=== PATIENT | male | born 1990 | race Caucasian/White ===

== ENCOUNTER 2018-01-26 17:52 | Emergency (ER) | payer OTHER ==
[2018-01-26] MEDS: morphine 4 MG/ML VIAL IV (22:11)
[2018-01-26] MEDS: ONDANSETRON 4 MG INJ IV (22:11)
[2018-01-26] MEDS: SOD CHLORIDE 0.9% 1,000 ML IV (22:12)
[2018-01-26] MEDS: CLINDAMYCIN 600 MG/D5W (PMX) 50 ML IVPB (22:12)
[2018-01-26 22:17] LABS: ADD MAN DIFF? NO
[2018-01-26 22:20] LABS: WHITE BLOOD COUNT 8.2 10^3/ul (4.8-10.8)
[2018-01-26 22:20] LABS: BASOPHILS % 0.4 % (0.0-2.0); EOSINOPHILS # 0.1 10^3/ul (0.0-0.5); EOSINOPHILS % 0.7 % (0.0-7.0); HEMATOCRIT 35.8 % (42.0-52.0); HEMOGLOBIN 12.2 g/dl (14.0-18.0); LYMPHOCYTES # 2.2 10^3/ul (0.8-2.9); LYMPHOCYTES % 26.9 % (15.0-51.0); MEAN CORPUSCULAR HEMOGLOBIN 28.4 pg (29.0-33.0); MEAN CORPUSCULAR HGB CONC 34.1 g/dl (32.0-37.0); MEAN CORPUSCULAR VOLUME 83.3 fl (82.0-101.0); MEAN PLATELET VOLUME 9.4 fl (7.4-10.4); MONOCYTE # 0.6 10^3/ul (0.3-0.9); MONOCYTES % 6.8 % (0.0-11.0); NEUTROPHIL # 5.3 10^3/ul (1.6-7.5); NEUTROPHILS % 64.8 % (39.0-77.0); PLATELET COUNT 176 10^3/UL (140-415); RED CELL DISTRIBUTION WIDTH 11.8 % (11.5-14.5)
[2018-01-26 22:36] LABS: ALANINE AMINOTRANSFERASE 16 IU/L (13-69); ALBUMIN 4.5 g/dl (3.3-4.9); ALBUMIN/GLOBULIN RATIO 1.21; ALKALINE PHOSPHATASE 95 IU/L (42-121); ANION GAP 13 (8-16); ASPARTATE AMINO TRANSFERASE 18 IU/L (15-46); BILIRUBIN,INDIRECT 1.3 mg/dl (0-1.1); BILIRUBIN,TOTAL 1.3 mg/dl (0.2-1.3); BLOOD UREA NITROGEN 13 mg/dl (7-20); CALCIUM 9.7 mg/dl (8.4-10.2); CARBON DIOXIDE 30 mmol/L (21-31); CHLORIDE 101 mmol/L (97-110); CREATININE 0.89 mg/dl (0.61-1.24); GLUCOSE 87 mg/dl (70-220); POTASSIUM 3.6 mmol/L (3.5-5.1); SODIUM 140 mmol/L (135-144); TOTAL PROTEIN 8.2 g/dl (6.1-8.1)
[2018-01-26 22:52] LABS: INR 1.04; PROTIME 13.7 Sec (11.9-14.9); PT RATIO 1.1
[2018-01-26] MEDS: IOHEXOL 300MG/ML 150 ML BTL (23:33)
[2018-01-26] MEDS: SOD CHLORIDE 0.9% 100 ML (23:33)
[2018-01-27] MEDS: KETOROLAC 30 MG INJ IV (00:45)
== END 2018-01-27 01:13 | disposition home or self-care (01) ==
LOC: FTE 01-27 01:13
DX: K04.7 Periapical abscess without sinus (principal); F17.210 Nicotine dependence, cigarettes, uncomplicated
CPT/HCPCS: 36415; 70491; 80053; 85025; 85610; 85730; 96374; 96375; 99285-25

== ENCOUNTER 2019-01-17 16:22 | Emergency (ER) | payer SELFPAY, OTHER ==
[2019-01-17] MEDS: ONDANSETRON (ODT) 4 MG TAB ODT (18:48)
[2019-01-17] MEDS: HYDROCODONE/APAP (5/325) TAB PO (18:48)
== END 2019-01-17 19:48 | disposition home or self-care (01) ==
LOC: FTE 16:22
DX: S06.0X0A Concussion without loss of consciousness, initial encounter (principal); S19.9XXA Unspecified injury of neck, initial encounter; V49.40XA Driver injured in collision with unspecified motor vehicles in traffic accident, initial encounter; Z87.891 Personal history of nicotine dependence
CPT/HCPCS: 70450; 72125; 73590; 99284-25